=== PATIENT | female | born 1950 | race Caucasian/White ===

== ENCOUNTER → 2019-03-08 | Outpatient (CLI) | payer MEDICARE, OTHER, SELFPAY | PROVIDERS: Family Provider Physician Assistant; Visit Provider Internal Medicine Medical Oncology | DX: M81.0 Age-related osteoporosis without current pathological fracture (principal); C50.111 Malignant neoplasm of central portion of right female breast; Z17.1 Estrogen receptor negative status [ER-] | CPT/HCPCS: 96372; J0897 ==

== ENCOUNTER 2019-09-23 08:14 | Outpatient (CLI) | payer MEDICARE, OTHER, SELFPAY ==
--- NOTE | 2019-09-23 08:24 | MM_ITS ---
WS: [id number] Left breast diagnostic digital mammogram, 09/23/2019 Clinical Data: HX OF BREAST CA (RT MAST) Comparison: 09/21/2018, 07/10/2017, 06/01/2016, 05/26/2015, 04/03/2014, 04/01/2013, 01/25/2012, 05/15/2009. Findings: The left breast shows heterogeneous density. No spiculated masses nor clustered calcifications are se en. The patient has an augmentation mammoplasty implant which is intact. There are no secondary signs of carcinoma. MM/[place] [id number] Impression: 1. Negative left breast mammogram. 2. Intact left breast augmentation mammoplasty implant. BIRADS: 1-Negative FOLLOW UP: 1 Year Follow-up The CAD auto design checker was used.
--- NOTE | 2019-09-23 16:16 | ONC FU_ITS ---
Dr. Esposito Patient Follow-Up Note Patient: SKYLA CAMPOS Unit #: [id number]: 1950 Dicatated By: Stew Esposito M.D.Date of Visit:Sep 23, 2019 Onc Med Follow-up/Prog Note Chief Complaint: Breast cancer/osteoprosis. History of Present Illness: This is a 69 year-old woman with grade 2 invasive ductal carcinoma of the right breast, stage IA (T1a, N0, M0), ER/ID negative and HER-2/errol positive, with subsequent development of Paget's disease. She also has osteoporosis. She had become aware of right nipple changes in 2008. In July of 2009 she had a right breast biopsy, revealing moderately differentiated invasive ductal carcinoma, grade 2, ER/ID negative, HER-2/errol 3+ by IHC, Ki-67 index 29%. On 07/28/2011 she underwent a right breast nipple sparing lumpectomy with sentinel lymph node biopsy. Surgical pathology showed a 5 mm infiltrating ductal carcinoma in the background of multifocal DCIS. There was no involvement in 3 sentinel lymph nodes, but margins were positive. There were no lymphovascular invasion. Her disease was thus, pT1a, N0, M0, stage IA. She did not have re-excision performed. She did not have an adjuvant Herceptin based chemotherapy. She was given radiation to the right breast to 5040 cGy followed by a boost to the surgical bed, completed on 11/20/2009. In February of 2010, she had an abnormal mammogram of the same breast. A biopsy of the lesion on 03/24/2010 showed necrosis with calcifications and epithelial atypia thought to be due to radiation changes. Followup mammogram in October of 2010 did not raise any concerns. She had recurrent nipple changes prompting dermatological evaluation. A needle biopsy revealed Paget's disease. The mammogram on 04/20/2011 in the settings of retracted nipple with the reddened skin showed mild skin thickening without subareolar mass. There were a few calcifications at previous site of biopsy. She underwent a breast MRI, report unavailable. CT of the chest, abdomen, and pelvis and a bone scan on 05/04/2011 showed remote rib fractures and a remote compression fracture of L3 without definite evidence of metastatic disease. On 06/15/2011 she had a right simple mastectomy with TRAM flap reconstruction. Surgical pathology showed 2.3 cm Paget disease of the nipple. There was no associated DCIS or invasive cancer. Post operatively it was complicated with pneumonia, C. difficile colitis, and significant anemia requiring 2 units of blood transfusion. She was first seen by Dr. Stevens on 07/22/2011. An active surveillance was initiated. She underwent reconstructive surgeries with bilateral breast implant placement on 09/06/2011. She was diagnosed with vitamin D insufficiency for which she completed 6 weeks of high-dose vitamin D replacement. Fosamax, Calcium and Vitamin D were started. DEXA scan on 07/24/12 showed T score in left femur -2.7, improved from -3.6 in 2010. Mammogram on 04/01/2013 was BI-RADS 2. Her medical illnesses, in addition to breast cancer, include epilepsy, vitamin D deficiency and osteoporosis. She is a nonsmoker. INTERIM HISTORY: Her DEXA scan on 11/30/2016 showed a T score -1.9 in the lumbar spine, -2.4 in the left femoral neck, and -2.5 in the right femoral neck, consistent with osteoporosis. She began treatment with Prolia in July 2017. A repeat DEXA scan on 06/01/2018 showed T score -1.5 in the lumbar spine, -2.3 in the left femoral neck, and -2.4 in the right femoral neck. As of her follow-up visit in August 2018 she appeared stable clinically with no evidence of recurrence of the breast cancer. She continued treatment with Prolia for the osteoporosis. She is seen for a scheduled visit. She has been feeling good generally. She does report having some fatigue, but she is working full-time. ECOG score is 0. Her appetite is good. Her weight is up a little. She does not have fever, night sweats, or hot flashes. She does tend to have little phlegm in her throat when she gets up in the morning. She does not have sore throat or difficulty swallowing. She does not complain of shortness of breath, cough, or chest pain. She has no GI or complaints. She occasionally has some aching in her knees. She has no other joint or bone pain. She has no focal neurologic symptoms. She is currently completing a course of steroid therapy for poison glenda. Medications: Keppra 3 Tablet (of 500 mg) Oral b.i.d., LaMICtal 1 Tablet (of 100 mg) Oral b.i.d., Magnesium 2 (25 mg) Tablet Oral daily PRN, Multi-Vitamin 1 Tablet Oral daily Allergies: KEFLEX Review of Systems: Constitutional - She has fatigue, but she is working full-time. Her appetite is good. Her weight is up a few pounds. No fever, night sweats, or hot flashes. ECOG score is 0, ENMT - No sinus congestion/drainage. No mouth sores. No sore throat or difficulty swallowing, Hematologic/Lymphatic - She has some bruising. No other bleeding, Respiratory - No shortness of breath. No cough. No pleuritic pain or hemoptysis, Cardiovascular - No angina pain. No palpitations, Gastrointestinal - No nausea or vomiting. No heartburn or acid reflux. No diarrhea or constipation. No blood in the stool or black stools, Genitourinary (F) - No dysuria or hematuria. No urinary frequency. No urgency or incontinence, Musculoskeletal - She sometimes has aching in her knees. She has no other joint or bone pain, Integumentary - She is currrently completely steroid therapy for poison glenda, Neurologic - No headache or dizziness. No numbness or tingling. No other focal neurologic symptoms, Psychiatric - No anxiety or depression. No insomnia. Vital Signs: Performed on Sep 23, 2019 09:03 Height - 67.00 in Weight - 184.8 lbs (HIGH) BSA - 1.96 sq.m BMI - 28.94 Temperature - 97.6 F (LOW) Pulse - 94 /min Respiration - 18 /min BP - 140/94 mm(hg) O2 Sat - 98 % Pain - 0 Physical Examination: Constitutional - She looks good generally, Eyes - Sclerae nonicteric. Conjunctivae clear, ENMT - No lesions noted in the oral cavity, Hematologic/Lymphatic - No cervical, clavicular, or axillary adenopathy, Respiratory - Lungs are clear with good air movement bilaterally, Cardiovascular - Heart rhythm is regular. There is no murmur, gallop, or rub noted, Abdomen - Soft. Liver and spleen are not enlarged. There is no abdominal mass or ascites noted and there is no inguinal adenopathy, Extremities - No edema. Dorsalis pedis pulses are palpable bilaterally, Neurologic - No focal neurologic deficits noted. Impression: 1. Patient with grade 2 invasive ductal carcinoma of the right breast, stage IA (T1a, N0, M0), ER/ID negative and HER-2/errol positive. 2. She underwent right breast lumpectomy with axillary sentinel lymph node biopsy on 07/28/2011. 3. She was given radiation to the right breast 20 dose of 5040 cGy followed by boost to the surgical bed, completed on 11/20/2009. 4. She was then followed on observation/expectant management. She was subsequently confirmed on biopsy of the right breast to have Paget's disease. 5. She underwent right simple mastectomy with TRAM flap reconstruction on 06/15/2011. Pathology showed Paget's disease of the nipple, but no invasive or in situ cancer within the breast. She continued to observation/expectant management. Her other medical illnesses inlcude: 6. Epilepsy. 7. Vitamin D deficiency. 8. Osteoporosis. 9. She is having symptoms of acid reflux. During follow-up she has been doing well clinically. She still had significant osteoporosis by DEXA scan. She had been on treatment with Fosamax since 2010. As of July 2017 her treatment was changed to Prolia, which she has tolerated well. Her repeat DEXA scan in May 2018 showed T score -2.3 in the left femoral neck and -2.4 in the right femoral neck. At this point she continues to have some fatigue, but she still has normal activity. Overall, she appears to be doing well clinically with no evidence of recurrence of the breast cancer. Plan: She remains on observation/expectant management for the breast cancer. She will be given Prolia 60 mg by subcutaneous injection for the osteoporosis. She will continue vitamin D3 1000 units daily. She returns in 6 months. Signed By: Stew Esposito M.D. <<Signature on File>>
== END 2019-09-23 08:15 | disposition home or self-care (01) ==
LOC: RADSHAW 08:21 → ONCMED 10:52
PROVIDERS: PCP Physician Assistant; Visit Provider Internal Medicine Medical Oncology
DX: Z08 Encounter for follow-up examination after completed treatment for malignant neoplasm (principal); Z85.3 Personal history of malignant neoplasm of breast; M81.0 Age-related osteoporosis without current pathological fracture; G40.909 Epilepsy, unspecified, not intractable, without status epilepticus; K21.9 Gastro-esophageal reflux disease without esophagitis; Z92.3 Personal history of irradiation; Z90.11 Acquired absence of right breast and nipple
CPT/HCPCS: 77065; 96372; 99214

== ENCOUNTER 2020-04-30 14:30 | Outpatient (CLI) | payer MEDICARE, OTHER, SELFPAY ==
[2020-04-30] MEDS: denosumab 60 mg SDV SUBCUT (15:05)
== END 2020-04-30 14:31 | disposition home or self-care (01) ==
LOC: ONCMED 14:35
PROVIDERS: PCP Physician Assistant; Visit Provider Internal Medicine Medical Oncology
DX: M81.0 Age-related osteoporosis without current pathological fracture (principal)
CPT/HCPCS: 96372; J0897

== ENCOUNTER 2020-05-19 06:09 | Outpatient (CLI) | payer MEDICARE, OTHER, SELFPAY ==
--- NOTE | 2020-05-19 11:01 | ONC FU_ITS ---
Dr. Esposito Patient Follow-Up Note Patient: Margarita Guevara Unit #: [id number]: 1950 Dicatated By: Stew Esposito M.D.Date of Visit:May 19, 2020 Onc Med Follow-up/Prog Note Chief Complaint: Breast cancer/osteoprosis. 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 She also has osteoporosis. She had become aware of right nipple changes in 2008. In July of 2009 she had a right breast biopsy, revealing moderately differentiated invasive ductal carcinoma, grade 2, ER/DE negative, HER-2/errol 3+ by IHC, Ki-67 index 29%. On 07/27/2009 she underwent a right breast nipple sparing lumpectomy with sentinel lymph node biopsy. Surgical pathology showed a 5 mm infiltrating ductal carcinoma in the background of multifocal DCIS. There was no involvement in 3 sentinel lymph nodes, but margins were positive. There were no lymphovascular invasion. Her disease was thus, pT1a, N0, M0, stage IA. She did not have re-excision performed. She did not have an adjuvant Herceptin based chemotherapy. She was given radiation to the right breast to 5040 cGy followed by a boost to the surgical bed, completed on 11/20/2009. In February of 2010, she had an abnormal mammogram of the same breast. A biopsy of the lesion on 03/24/2010 showed necrosis with calcifications and epithelial atypia thought to be due to radiation changes. Followup mammogram in October of 2010 did not raise any concerns. She had recurrent nipple changes prompting dermatological evaluation. A needle biopsy revealed Paget's disease. The mammogram on 04/20/2011 in the settings of retracted nipple with the reddened skin showed mild skin thickening without subareolar mass. There were a few calcifications at previous site of biopsy. She underwent a breast MRI, report unavailable. CT of the chest, abdomen, and pelvis and a bone scan on 05/04/2011 showed remote rib fractures and a remote compression fracture of L3 without definite evidence of metastatic disease. On 06/15/2011 she had a right simple mastectomy with TRAM flap reconstruction. Surgical pathology showed 2.3 cm Paget disease of the nipple. There was no associated DCIS or invasive cancer. Post operatively it was complicated with pneumonia, C. difficile colitis, and significant anemia requiring 2 units of blood transfusion. She was first seen by Dr. Stevens on 07/22/2011. An active surveillance was initiated. She underwent reconstructive surgeries with bilateral breast implant placement on 09/06/2011. She was diagnosed with vitamin D insufficiency for which she completed 6 weeks of high-dose vitamin D replacement. Fosamax, Calcium and Vitamin D were started. DEXA scan on 07/24/12 showed T score in left femur -2.7, improved from -3.6 in 2010. Mammogram on 04/01/2013 was BI-RADS 2. Her medical illnesses, in addition to breast cancer, include epilepsy, vitamin D deficiency and osteoporosis. She is a nonsmoker. INTERIM HISTORY: Her DEXA scan on 11/30/2016 showed a T score -1.9 in the lumbar spine, -2.4 in the left femoral neck, and -2.5 in the right femoral neck, consistent with osteoporosis. She began treatment with Prolia in July 2017. A repeat DEXA scan on 06/01/2018 showed T score -1.5 in the lumbar spine, -2.3 in the left femoral neck, and -2.4 in the right femoral neck. As of her follow-up visit in September 2019 she appeared stable clinically with no evidence of recurrence of the breast cancer. She continued treatment with Prolia for the osteoporosis. She is seen for a scheduled visit. She has been feeling good generally. She does have some mild fatigue, attributable to her medication. She still has normal activity. ECOG score is 0. Appetite is good. She has no fever, night sweats, or hot flashes. She has no shortness of breath, cough, or chest pain. She has no GI complaints. Bladder function remains adequate, though she says she has developed some prolapse. She has no significant joint or bone pain. She is due to have a repeat DEXA scan this month. She does not complain of headache. She does have some dizziness, also attributable to her medication. She has no focal neurologic symptoms. Medications: Keppra 3 Tablet (of 500 mg) Oral b.i.d., LaMICtal 1 Tablet (of 100 mg) Oral b.i.d., Magnesium 2 (25 mg) Tablet Oral daily PRN, Multi-Vitamin 1 Tablet Oral daily Allergies: KEFLEX Vital Signs: Performed on May 19, 2020 09:19 Height - 67.00 in Weight - 191 lbs (HIGH) BSA - 1.98 sq.m BMI - 29.92 Temperature - 96.1 F (LOW) Pulse - 96 /min Respiration - 18 /min BP - 145/94 mm(hg) (HIGH) O2 Sat - 97 % Pain - 0 Fatigue - 0 Physical Examination: Constitutional - She looks good generally, Eyes - Sclerae nonicteric. Conjunctivae clear, ENMT - No lesions noted in the oral cavity, Hematologic/Lymphatic - No cervical, clavicular, or axillary adenopathy, Respiratory - Lungs are clear with good air movement bilaterally, Cardiovascular - Heart rhythm is regular. There is no murmur, gallop, or rub noted, Abdomen - Soft. Liver and spleen are not enlarged. There is no abdominal mass or ascites noted and there is no inguinal adenopathy, Extremities - No edema, Neurologic - No focal neurologic deficits noted. Lab/Imaging: Her laboratory studies from 05/18/2020 included CBC showing hemoglobin 15.2 g, white blood cell count 4500, and platelet count 189,000. Comprehensive metabolic profile showed normal renal function with BUN 14 and creatinine 0.7 mg/dL. The bilirubin and liver enzymes were normal. The 25-hydroxy vitamin D level was normal at 41 ng/mL. Problem List: 1. Grade 2 invasive ductal carcinoma of the right breast, stage IA (T1a, N0, M0), ER/DE negative and HER-2/errol positive, treated in 2009 with lumpectomy, SALNB, and radiation. 2. She subsequently was confirmed on biopsy of the right breast to have Paget's disease. She underwent right simple mastectomy with TRAM flap reconstruction on 06/15/2011. Pathology showed Paget's disease of the nipple, but no invasive or in situ cancer within the breast. 3. Vitamin D deficiency. 4. Osteoporosis. 5. GERD. 6. Epilepsy. Problems Addressed with this Encounter and Plan: 1. Patient with grade 2 invasive ductal carcinoma of the right breast, stage IA (T1a, N0, M0), ER/DE negative and HER-2/errol positive. She underwent right breast lumpectomy with axillary sentinel lymph node biopsy on 07/27/2009. She was given radiation to the right breast to a total dose of 5040 cGy followed by boost to the surgical bed, completed on 11/20/2009. She was then followed on observation/expectant management. She was subsequently confirmed on biopsy of the right breast to have Paget's disease. She underwent right simple mastectomy with TRAM flap reconstruction on 06/15/2011. Pathology showed Paget's disease of the nipple, but no invasive or in situ cancer within the breast. She then continued on observation/expectant management. During follow-up she has been doing well clinically with no evidence of recurrence of the breast cancer. She is due for her surveillance unilateral left diagnostic mammogram in September, and that will be scheduled. She will be continuing her regular follow-up now with Nilda Ibarra. I will just plan to see her again as needed. 2. Osteoporosis. She has been on treatment with Prolia, which she has tolerated well. She is due to have a repeat DEXA scan this month. At this point I am assuming that she will continue her Prolia injections every 6 months along with her vitamin D supplementation. Signed By: Stew Esposito M.D. <<Signature on File>>
== END 2020-05-19 06:10 | disposition home or self-care (01) ==
LOC: ONCMED 06:12
PROVIDERS: PCP Physician Assistant; Visit Provider Internal Medicine Medical Oncology
DX: Z08 Encounter for follow-up examination after completed treatment for malignant neoplasm (principal); Z85.3 Personal history of malignant neoplasm of breast; M81.0 Age-related osteoporosis without current pathological fracture; Z79.899 Other long term (current) drug therapy; Z90.11 Acquired absence of right breast and nipple; Z92.3 Personal history of irradiation
CPT/HCPCS: G0463

== ENCOUNTER 2020-06-02 14:50 | Outpatient (CLI) | payer MEDICARE, OTHER, SELFPAY ==
--- NOTE | 2020-06-02 15:05 | XR_ITS ---
WS: [id number] DEXA (DUAL ENERGY X-RAY ABSORPTIOMETRY) Bone mineral density was performed using a Evino machine. HISTORY: OSTEOPOROSIS COMPARISON: 06/01/2018 Lumbar spine BMD (L1-L4): 1.001 g/cm2 T score: -1.5 Z score: -0.5 Total hip BMD: Left: 0.742 g/cm2. T score: -2.1 Z score: -1.2 Right: 0.725 g/cm2. T score: -2.2 Z score: -1.4 10 year probability of a major osteoporotic fracture is 23%. Compared to the prior study from 06/01/2018. Lumbar spine bone mineral density has increased by 0.5%. Bilateral hips bone mineral density has increased by 2.9%. XR/XR DEXA axial skeleton* [id number] IMPRESSION: OSTEOPENIA based upon the WHO classification for females. Significant improveme nt in bone mineral density within the hips since the prior study.
== END 2020-06-02 14:51 | disposition home or self-care (01) ==
LOC: RADWPI 14:51
PROVIDERS: PCP Physician Assistant; Visit Provider Physician Assistant
DX: M81.0 Age-related osteoporosis without current pathological fracture (principal); M85.88 Other specified disorders of bone density and structure, other site
CPT/HCPCS: 77080

== ENCOUNTER 2020-10-27 10:05 | Outpatient (CLI) | payer MEDICARE, OTHER, SELFPAY ==
--- NOTE | 2020-10-27 10:09 | MM_ITS ---
WS: [id number] LEFT DIGITAL MAMMOGRAPHY WITH CAD CLINICAL INFORMATION: HX OF BREAST CA;RT MASTECTOMY COMPARISON: September 23, 2019 TECHNIQUE: 6 views of the left breast were obtained. FINDINGS: Left breast implant appears mammographically intact. The left breast is composed of heterogeneous fibroglandular density tissue, which can limit the detec tion of small underlying mass lesions. Asymmetric density measuring 12 mm new compared to previous. T his is best seen on the ML and MLO views along the posterior nipple line adjacent to the breast impla nt. Recommend further evaluation with spot compression views and ultrasound. MM/[place] [id number] IMPRESSION: BI-RADS: 0-Incomplete: Need additional imaging evaluation FOLLOW UP: Need Additional Imaging RECOMMEND LEFT BREAST DIAGNOSTIC MAMMOGRAPHY AND ULTRASOUND FOR FURTHER EVALUAT ION.
== END 2020-10-27 10:06 | disposition home or self-care (01) ==
LOC: RADSHAW 10:08
PROVIDERS: PCP Physician Assistant; Visit Provider Internal Medicine Medical Oncology
DX: Z85.3 Personal history of malignant neoplasm of breast (principal); Z90.11 Acquired absence of right breast and nipple; N64.89 Other specified disorders of breast
CPT/HCPCS: 77065

== ENCOUNTER 2020-10-29 13:16 | Outpatient (RCR) | payer MEDICARE, OTHER, SELFPAY ==
[2020-10-29] MEDS: denosumab 60 mg SDV SUBCUT (13:48)
== END 2020-11-10 23:59 | disposition home or self-care (01) ==
LOC: ONCMED 13:16
PROVIDERS: PCP Physician Assistant; Visit Provider Internal Medicine Medical Oncology
DX: M81.0 Age-related osteoporosis without current pathological fracture (principal); Z79.899 Other long term (current) drug therapy
CPT/HCPCS: 96372; J0897

== ENCOUNTER 2020-11-04 08:05 | Outpatient (CLI) | payer MEDICARE, OTHER, SELFPAY ==
--- NOTE | 2020-11-04 08:13 | US_ITS ---
WS: [id number] LEFT DIGITAL MAMMOGRAPHY WITH CAD CLINICAL INFORMATION: ABNORMAL FINDING LT BREAST COMPARISON: October 27, 2020 TECHNIQUE: 3 views of the left breast were obtained. FINDINGS: Postoperative left breast implant. Scattered fibroglandular densities of the left breast. Previously described 12 mm asymmetric density is again seen today and partially compresses out on the spot compression views. Ultrasound is pending . ULTRASOUND BREAST LEFT TECHNIQUE: Ultrasound left breast focused area of concern. FINDINGS: Ultrasound left breast posterior to the nipple 6 - 9:00 position. Dense underlying parenchymal tissue . A few incidental dilated ducts. No suspicious cystic or solid lesions. No lesions to target for bio psy. US/US breast LT limited* [id number] IMPRESSION: BI-RADS: 2-Benign FOLLOW UP: 1 Year Follow-up Recommend return to annual diagnostic mammography.
== END 2020-11-04 08:06 | disposition home or self-care (01) ==
LOC: RADSHAW 08:10
PROVIDERS: PCP Physician Assistant; Visit Provider Internal Medicine Medical Oncology
DX: N64.89 Other specified disorders of breast (principal)
CPT/HCPCS: 76642; 77065

== ENCOUNTER 2021-03-16 15:20 | Emergency (ER) | payer MEDICARE, OTHER, SELFPAY ==
--- NOTE | 2021-03-16 15:22 | XRR_ITS ---
PROCEDURE INFORMATION: Exam: XR Right Wrist Exam date and time: 03/16/2021 3:22 PM Age: 71 years old Clinical indication: Injury or trauma; Fall; Blunt trauma (contusions or hematomas); Wrist; Right TECHNIQUE: Imaging protocol: XR Right wrist. Views: 3 or more views. COMPARISON: No relevant prior studies available. FINDINGS: Bones/joints: Distal radial metaphyseal minimally displaced fracture. Moderate to severe 1st carpometacarpal joint osteoarthritis. Soft tissues: Normal. XR/XR wrist RT min 3V* [id number] IMPRESSION: 1. Distal radial metaphyseal minimally displaced fracture. 2. Moderate to severe 1st carpometacarpal joint osteoarthritis.
[2021-03-16 15:46] VITALS: BP 154/70; PULSE 41; RESP 16; TEMP 36.6; O2SAT 95
--- NOTE | 2021-03-16 16:02 | W.ED.FALL ---
HPI - Fall General: Chief Complaint: Fall Stated Complaint: Fell on wrist Time Seen by Provider: 03/16/21 16:34 History of Present Illness: HPI Narrative: Patient tripped while walking today falling on her right wrist now has pain to her right wrist. Patient denies any cardiac problems is not on any heart medications does take antiseizure medication. No history of slow heart rate. Denies shortness of breath chest pain or dizziness. MD complaint: fall Onset (ago): minute(s) Fall from: standing Fall witnessed: yes, by family Place fall occurred: home Symptoms prior to fall: none Context: tripped/slipped Associated symptoms-after fall: Denies abdominal pain, chest pain or headache(s) Review of Systems Const: Denies: fever(s), chills or body aches Eyes: Denies: change in vision or blurry vision ENMT: Denies: throat pain or nasal congestion Card: Reports: other (No history of bradycardia); Denies: chest pain or dyspnea on exertion Resp: Denies: dyspnea, productive cough or non-productive cough GI: Denies: abdominal pain, nausea or vomiting Musc: Reports: extremity pain (Right arm hurts after tripping and falling today) Skin/Breast: Denies: rash Neuro: Denies: headache(s) Psych: Denies: anxiety or depression Henry/Lymph: Denies: easy bruising Physical Exam Const: COMMON NORMALS: no acute distress, average body habitus and patient oriented x3 HENMT: COMMON NORMALS: normocephalic HEAD & SCALP: normal to inspection and normocephalic FACE & SINUS: normal facial exam Eye: COMMON NORMALS: conjunctivae normal GENERAL EYE: appearance normal, both eyes and all related structures CONJUNCTIVA: Yes conjunctivae normal Neck/C-Spine: COMMON NORMALS: no JVD Resp: COMMON NORMALS: normal respiratory effort Cardio: COMMON NORMALS: no JVD OTHER: Rate in triage and when checked in waiting room was in the 40s. When retriaged again for splint it was up in the 70s and 80s. GI: COMMON NORMALS: Normal to inspection, nondistended, normoactive bowel sounds present Extremity: COMMON NORMALS: normal to inspection and full ROM Neuro: COMMON NORMALS: patient oriented x3 Course Vital Signs: Vital signs: Vital Signs Temperature 97.9 F 03/16/21 15:46 Pulse Rate 41 L 03/16/21 15:46 Respiratory Rate 16 03/16/21 15:46 Blood Pressure 154/70 03/16/21 15:46 Pulse Oximetry 95 03/16/21 15:46 MDM - Fall MDM Narrative: Medical decision making narrative: Brief history and physical exam was performed as part of the triage process. Due to current ED wait time patient will be placed in waiting room until a room becomes available. Explained to patient he/she will be seen in order of severity. Patient is currently safe to wait in the waiting room until we can get them placed. Patient informed that if condition worsens at any time to please let the front end manager know. Patient was evaluated in the waiting room shown to have a wrist fracture. Patient also was bradycardic on triage. Will work the bradycardia up since she has no history of the. Patient given splint applied for fracture and will be referred to Ortho. 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 Patient's heart rate was in the 70s to 80s when given splint applied. Discharge Plan Discharge Patient Disposition: Home Clinical Impression: Bradycardia Distal radial fracture Qualifiers: Encounter type: initial encounter Fracture type: closed Fracture morphology: other fracture Laterality: right Qualified Code(s): S52.591A - Other fractures of lower end of right radius, initial encounter for closed fracture Condition: Stable Prescriptions: New hydrocodone-acetaminophen 5-325 mg tablet 1 tab PO TID PRN (Reason: pain) Qty: 14 RF: 0 Discharge Orders: Discharge ED (Routine); Ordered 03/16/21 Ordered By: Tj Irving Referrals: Nilda Ibarra PA [Primary Care Provider] - Discharge Diet: Usual diet Discharge Activity: Limit activity as instructed Patient Instructions: Arm Fracture in Adults (ED) Activity Restrictions/Additional Instructions: Follow-up with medical provider as directed. Take medications as prescribed. Return to the ER or your medical provider if condition worsens. Please read and understand discharge instructions. If any questions ask please. Wear splint and sling until follow-up with primary care provider. Make sure you check your pulse rate, at regular intervals always record those and report them to your primary care provider. Hospital contact with appointment for Ortho follow-up provider. Coding Level of Care Code ED Pattern Scratcher for Chg Fwd Exam Comprehensive
--- NOTE | 2021-03-16 16:51 | PC.NURSE ---
Pt refused EKG. Monitor heart rate, maintains at upper 70's
[2021-03-16] MEDS: HYDROcodone-acetaminophen 5-325 mg Tablet 1 TAB PO (16:55)
[2021-03-16 16:59] VITALS: BP 134/82; PULSE 73; RESP 17; O2SAT 96
--- NOTE | 2021-03-17 09:35 | DCPLANNER ---
social media sr strategy manager had message to schedule a follow up appointment for patient with ortho. social media sr strategy manager called the ortho clinic, spoke with Whitney, gave clinic patients information. social media sr strategy manager was told that patients information would be printed and reviewed. Clinic will call patient with appointment information.
--- NOTE | 2021-03-25 09:02 | DCPLANNER ---
Patient had a follow up appointment scheduled for 03.18.21 with Wolfgang NORWOOD, at ortho - patient did attend appointment.
== END 2021-03-16 17:01 | disposition home or self-care (01) ==
PROVIDERS: Emergency Provider Nurse Practitioner Family; PCP Physician Assistant
DX: S52.591A Other fractures of lower end of right radius, initial encounter for closed fracture (principal); R00.1 Bradycardia, unspecified; W01.0XXA Fall on same level from slipping, tripping and stumbling without subsequent striking against object, initial encounter
CPT/HCPCS: 29105; 73110; 99283

== ENCOUNTER → 2021-03-18 08:54 | Outpatient (BNVA) | payer MEDICARE, OTHER, SELFPAY | PROVIDERS: PCP Physician Assistant; Referring Provider Nurse Practitioner Family; Visit Provider Physician Assistant | DX: S52.591A Other fractures of lower end of right radius, initial encounter for closed fracture (principal); X58.XXXA Exposure to other specified factors, initial encounter; Z46.89 Encounter for fitting and adjustment of other specified devices; S52.591D Other fractures of lower end of right radius, subsequent encounter for closed fracture with routine healing; X58.XXXD Exposure to other specified factors, subsequent encounter | CPT/HCPCS: 73110; 97760; L3982 ==

== ENCOUNTER 2021-03-18 13:45 | Outpatient (CLI) | payer MEDICARE, OTHER, SELFPAY | END 2021-03-18 13:46 | disposition home or self-care (01) | LOC: SPT 13:46 | PROVIDERS: PCP Physician Assistant; Visit Provider Physician Assistant | DX: Z46.89 Encounter for fitting and adjustment of other specified devices (principal); S52.591D Other fractures of lower end of right radius, subsequent encounter for closed fracture with routine healing; X58.XXXD Exposure to other specified factors, subsequent encounter | CPT/HCPCS: 97760; L3982 ==

== ENCOUNTER → 2021-04-06 10:29 | Outpatient (BNVA) | payer MEDICARE, OTHER, SELFPAY | PROVIDERS: PCP Physician Assistant; Visit Provider Physician Assistant | DX: S52.591D Other fractures of lower end of right radius, subsequent encounter for closed fracture with routine healing (principal); M18.0 Bilateral primary osteoarthritis of first carpometacarpal joints; X58.XXXD Exposure to other specified factors, subsequent encounter | CPT/HCPCS: 73110 ==

== ENCOUNTER → 2021-04-29 10:29 | Outpatient (BNVA) | payer MEDICARE, OTHER, SELFPAY | PROVIDERS: PCP Physician Assistant; Visit Provider Physician Assistant | DX: S52.501A Unspecified fracture of the lower end of right radius, initial encounter for closed fracture (principal); X58.XXXA Exposure to other specified factors, initial encounter | CPT/HCPCS: 73110 ==

== ENCOUNTER 2021-05-13 12:46 | Outpatient (CLI) | payer MEDICARE, OTHER, SELFPAY ==
[2021-05-13 13:13] VITALS: BP 116/78; PULSE 79; RESP 18; TEMP 37.4; O2SAT 95
[2021-05-13] MEDS: denosumab 60 mg SDV SUBCUT (13:19)
[2021-05-13 13:26] VITALS: BP 122/87; PULSE 79; RESP 18; TEMP 37.1; O2SAT 95
== END 2021-05-13 12:47 | disposition home or self-care (01) ==
LOC: ONCMED 12:53
PROVIDERS: PCP Physician Assistant; Visit Provider Physician Assistant
DX: M81.0 Age-related osteoporosis without current pathological fracture (principal)
CPT/HCPCS: 96372; J0897

== ENCOUNTER 2021-07-21 04:46 | Emergency (ER) | payer MEDICARE, OTHER, SELFPAY ==
[2021-07-21 04:48] VITALS: BMI 27.3
--- NOTE | 2021-07-21 04:52 | CTR_ITS ---
PROCEDURE INFORMATION: Exam: CT Abdomen And Pelvis Without Contrast Exam date and time: 07/21/2021 5:10 AM Age: 71 years old Clinical indication: Abdominal pain; Localized; Left lower quadrant (llq); Prior surgery; Surgery type: Csection. Mastectomy. Breast oct. ; Patient HX: C/O llq pain. History of uterine fibroid tumor. ; Additional info: Llq abd pain TECHNIQUE: Imaging protocol: Computed tomography of the abdomen and pelvis without contrast. Radiation optimization: All CT scans at this facility use at least one of these dose optimization techniques: automated exposure control; mA and/or kV adjustment per patient size (includes targeted exams where dose is matched to clinical indication); or iterative reconstruction. COMPARISON: No relevant prior studies available. RADIATION DOSE METRICS: Total DLP (mGy-cm): 1528.56 FINDINGS: Lungs: Mild probable atelectasis and parenchymal scarring in the lower lungs. Mild bronchiectasis the posterior lower lobes bilaterally. No pleural fluid. Liver: Unremarkable. Gallbladder and bile ducts: No definite gallbladder abnormality by CT. No biliary tree dilation. Pancreas: Unremarkable. Spleen: Unremarkable. Adrenal glands: Unremarkable. Kidneys and ureters: Several left intrarenal calculi, largest measures about 5 mm. Mild left perinephric and periureteric stranding/fluid. Mild left hydronephrosis and hydroureter. However, no definite ureteral calculus is identified. There is a 3-4 mm calculus in the dependent aspect of the urinary bladder. Therefore, I suspect the patient has recently passed a left ureteral calculus. Please correlate clinically. No right hydronephrosis or visible right ureteral calculus. Stomach and bowel: No significant bowel distention. There is mild diverticulosis involving the colon, without CT evidence of diverticulitis. Appendix: The appendix is visualized and appears normal. Intraperitoneal space: No free intraperitoneal air, or ascites. Vasculature: No evidence for abdominal aortic aneurysm. Lymph nodes: No retroperitoneal adenopathy. Urinary bladder: 3-4 mm calculus in the dependent aspect of the urinary bladder. Reproductive: Large 4.5 cm calcified fibroid extending from the fundus of the uterus. Smaller 9-10 mm calcified presumed fibroid the in the lower uterus. Bones/joints: Moderate to severe degenerative/arthritic changes in the lower lumbar spine. Soft tissues: No significant acute finding. CT/CT abdomen pelvis wo con [id number] IMPRESSION: 1. Mild left hydronephrosis/hydroureter, and perinephric/periureteric stranding/fluid. 2. No visible ureteral calculus. 3-4 mm calculus in the urinary bladder. Therefore, I suspect the patient has recently passed a left ureteral calculus. See above. 3. Intrarenal calculi, details above. 4. Mild diverticulosis, without evidence of diverticulitis. 5. Normal appendix. 6. No free air or bowel distention. 7. Calcified uterine fibroids, details above. 8. Other findings discussed above.
--- NOTE | 2021-07-21 04:53 | ED_ITS ---
Documented by User: Hari Zeng MD 07/21/21 18:42 HPI - Abdominal Pain General: Chief Complaint: Abdominal Pain Stated Complaint: ABD Pain Time Seen by Provider: 07/21/21 04:48 Source: patient and EMS Mode of arrival: EMS Limitations: no limitations History of Present Illness: 71-year-old female states that she has been having severe left lower quadrant abdominal pains along with some left-sided flank pains tonight. States it started late tonight worsened this morning she denies any fever or vomiting. She is given fentanyl in route states her pain has improved with IV pain meds states her pain is currently a 3 out of 10. Associated Symptoms: Denies chills, dysuria and fever(s) Review of Systems Const: Denies: fever(s), chills, body aches or change in appetite Eyes: Denies: blurry vision or eye discomfort ENMT: Denies: throat pain or dental pain Card: Denies: chest pain Resp: Denies: dyspnea GI: Reports: abdominal pain : Denies: dysuria Musc: Denies: neck pain or back pain Skin/Breast: Denies: rash Neuro: Denies: headache(s) Psych: Denies: depression Henry/Lymph: Denies: easy bruising All/Imm: Denies: urticaria PFSH ED PFSH: Surgical History (Updated 07/21/21 @ 04:54 by Hari Zeng MD) H/O mastectomy Social History Smoking and tobacco status: never smoked Physical Exam Const: COMMON NORMALS: no acute distress, patient oriented x3 and healthy appearing HENMT: COMMON NORMALS: normocephalic and atraumatic HEAD & SCALP: normocephalic and atraumatic Eye: COMMON NORMALS: Equal, round and reactive pupils present and EOMs intact bilaterally PUPIL: Yes Equal, round and reactive pupils present Neck/C-Spine: COMMON NORMALS: full ROM and supple Chest: COMMONS NORMALS: normal inspection of the chest and normal palpation of entire chest wall Resp: COMMON NORMALS: normal respiratory effort, No retractions, No use of accessory muscles and clear to auscultation bilaterally AUSCULTATION: clear to auscultation bilaterally Cardio: COMMON NORMALS: regular rate, regular rhythm and No murmurs present (Cardio) RATE: regular rate RHYTHM: regular rhythm GI: COMMON NORMALS: Normal to inspection, nondistended, normoactive bowel sounds present, Soft to palpation and no masses PALPATION: Yes Soft to palpation and Yes Tenderness to palpation present (GI) Details: LLQ Extremity: COMMON NORMALS: normal to inspection and full ROM Neuro: COMMON NORMALS: patient oriented x3, moves all extremities and no focal motor deficits Psych: COMMON NORMALS: mental status grossly normal, Normal thought process present and cooperative THOUGHT PROCESS: Normal thought process present Skin: COMMON NORMALS: no rashes or lesions noted and no wounds GENERAL SKIN EXAM: no rashes or lesions noted Course Vital Signs: Vital signs: Vital Signs Pulse Rate 66 07/21/21 08:00 Respiratory Rate 18 07/21/21 08:00 Blood Pressure 134/62 07/21/21 08:30 Pulse Oximetry 94 07/21/21 08:30 MDM - Abdominal Pain Medical Decision Making Patient presents here with abdominal pain she is pending blood work and her CT abdomen care turned over to Dr. Craven at shift change Lab Data : 07/21/21 05:56 07/21/21 05:56 Labs/Radiology: Radiology Impressions Abdomen/Pelvis CT 07/21/21 04:52 IMPRESSION: 1. Mild left hydronephrosis/hydroureter, and perinephric/periureteric stranding/fluid. 2. No visible ureteral calculus. 3-4 mm calculus in the urinary bladder. Therefore, I suspect the patient has recently passed a left ureteral calculus. See above. 3. Intrarenal calculi, details above. 4. Mild diverticulosis, without evidence of diverticulitis. 5. Normal appendix. 6. No free air or bowel distention. 7. Calcified uterine fibroids, details above. 8. Other findings discussed above. Laboratory Results WBC 6.1 10^3/uL (4.0-10.0) 07/21/21 05:56 RBC 5.12 10^6/uL (4.1-5.3) 07/21/21 05:56 Hgb 14.7 g/dL (11.5-15.3) 07/21/21 05:56 Hct 46.1 % (37.0-47.0) 07/21/21 05:56 MCV 90.0 fl (81-99) 07/21/21 05:56 MCH 28.7 pg (28.0-34.0) 07/21/21 05:56 MCHC 31.9 g/dL (30.0-36.0) 07/21/21 05:56 RDW 12.5 % (12.1-15.1) 07/21/21 05:56 Plt Count 201 10^3/cmm (130-400) 07/21/21 05:56 MPV 10.2 fL (7.4-10.4) 07/21/21 05:56 Neut % (Auto) 78.3 % 07/21/21 05:56 Lymph % (Auto) 12.7 % 07/21/21 05:56 Gila % (Auto) 6.1 % 07/21/21 05:56 Eos % (Auto) 2.5 % 07/21/21 05:56 Baso % (Auto) 0.2 % 07/21/21 05:56 Neut # (Auto) 4.77 10^3/uL (1.8-7.7) 07/21/21 05:56 Lymph # (Auto) 0.8 10^3/uL (0.8-4.8) 07/21/21 05:56 Gila # (Auto) 0.4 10^3/uL (0.2-0.9) 07/21/21 05:56 Eos # (Auto) 0.2 10^3/uL (0.0-0.8) 07/21/21 05:56 Baso # (Auto) 0.0 10^3/uL (0.0-0.1) 07/21/21 05:56 Nucleated RBC % (auto) 0 % 07/21/21 05:56 Nucleated RBCs # 0.0 /100WBC 07/21/21 05:56 Sodium 138 mmol/L (136-145) 07/21/21 05:56 Potassium 3.8 mmol/L (3.5-5.1) 07/21/21 05:56 Chloride 102 mmol/L (98-107) 07/21/21 05:56 Carbon Dioxide 25 mmol/L (22-29) 07/21/21 05:56 Anion Gap 14.8 (5-19) 07/21/21 05:56 BUN 12 mg/dL (8-23) 07/21/21 05:56 Creatinine 0.7 mg/dL (0.5-0.9) 07/21/21 05:56 GFR Calculation 83.0 mL/min (90-130) L 07/21/21 05:56 Glucose 121 mg/dL (65-115) H 07/21/21 05:56 Calculated Osmolality 287 mOsm/kg (285-295) 07/21/21 05:56 Calcium 9.5 mg/dL (8.5-10.5) 07/21/21 05:56 Total Bilirubin 0.4 mg/dL (0.15-1.2) 07/21/21 05:56 AST 21 U/L (0-32) 07/21/21 05:56 ALT 17 U/L (0-33) 07/21/21 05:56 Alkaline Phosphatase 35 IU/L (35-105) 07/21/21 05:56 Total Protein 7.0 g/dL (6.6-8.7) 07/21/21 05:56 Albumin 4.5 g/dL (3.5-5.2) 07/21/21 05:56 Globulin 2.5 g/dL (1.3-4.6) 07/21/21 05:56 Lipase 26 U/L (13-60) 07/21/21 05:56 Urine Color Yellow (Yellow) 07/21/21 07:20 Urine Appearance Clear (CLEAR) 07/21/21 07:20 Urine pH 6 (5-7) 07/21/21 07:20 Ur Specific [place] 1.015 (1.005-1.030) 07/21/21 07:20 Urine Protein Neg (Negative) 07/21/21 07:20 Urine Glucose (UA) Norm (Normal) 07/21/21 07:20 Urine Ketones Negative (Negative) 07/21/21 07:20 Urine Blood 3+ (Negative) H 07/21/21 07:20 Urine Nitrate Negative (Negative) 07/21/21 07:20 Urine Bilirubin Neg (Negative) 07/21/21 07:20 Urine Urobilinogen Norm mg/dL (Negative) 07/21/21 07:20 Ur Leukocyte Esterase 2+ (Negative) H 07/21/21 07:20 Urine RBC 25-40 /hpf (0-2) H 07/21/21 07:20 Urine WBC 10-15 /hpf (0-5) H 07/21/21 07:20 Ur Squamous Epith Cells 0-4 /hpf (0-5) H 07/21/21 07:20 Amorphous Sediment Not Reportable 07/21/21 07:20 Urine Bacteria Trace /hpf (NONE) 07/21/21 07:20 Discharge Plan Discharge Patient Disposition: Home Clinical Impression: Nephrolithiasis, Cystitis Condition: Stable Prescriptions: New Macrobid 100 mg capsule 100 mg PO BID 7 Days Qty: 14 0RF Rx Instructions: must administer with a meal/food No Action hydrocodone-acetaminophen 5-325 mg tablet 1 tab PO .Q6hr PRN (Reason: pain) 5 Days Qty: 20 0RF (DME) Cock up splint See Rx Instructions .Route .MEDSUPPLY Qty: 1 0RF Rx Instructions: As directed levetiracetam [Keppra] 250 mg tablet 100 mg PO TID 0RF lamotrigine [Lamictal] 150 mg tablet 75 mg PO BID 0RF (DME) FAST FORM COCK UP SPLINT See Rx Instructions .Route .MEDSUPPLY Qty: 1 0RF Rx Instructions: As directed oxycodone 5 mg tablet 5 mg PO Q6H PRN (Reason: pain) 7 Days Qty: 30 0RF Rx Instructions: Take 1 tablet PO Q6 hrs as needed for pain Discharge Orders: Discharge ED (Routine); Ordered 07/21/21 Ordered By: Gaurang Craven Referrals: Nilda Ibarra PA [Primary Care Provider] - Discharge Diet: Usual diet Discharge Activity: Increase activity as tolerated Patient Instructions: Opioid Safety Activity Restrictions/Additional Instructions: Case management make arrangements for follow-up with urology. Sign Out Sign Out Data: Patient Sign Out occurred on 07/21/21 at 06:10. Patient's care was discussed, and care was transferred from to Gaurang Craven DO. Coding Level of Care Code ED Medical Chief Technician for Chg Fwd Exam Comprehensive Documented by User: Gaurang Craven DO 07/27/21 14:49 HPI - Abdominal Pain General: Chief Complaint: Abdominal Pain Stated Complaint: ABD Pain Time Seen by Provider: 07/21/21 04:48 PFS ED PFSH: Surgical History (Updated 07/21/21 @ 04:54 by Hari Zeng MD) H/O mastectomy Social History Smoking and tobacco status: never smoked Course Vital Signs: Vital signs: Vital Signs Pulse Rate 66 07/21/21 08:00 Respiratory Rate 18 07/21/21 08:00 Blood Pressure 134/62 07/21/21 08:30 Pulse Oximetry 94 07/21/21 08:30 MDM - Abdominal Pain Medical Decision Making Patient presents here with abdominal pain she is pending blood work and her CT abdomen care turned over to Dr. Craven at shift change Care assumed at change of shift. Patient has nephrolithiasis. Discussed results with the patient discharged home strain urine Flomax pain medications follow-up with [facility] I reviewed the patient's medical records. Lab Data I reviewed the patient's lab results. : 07/21/21 05:56 07/21/21 05:56 Labs/Radiology: Radiology Impressions Abdomen/Pelvis CT 07/21/21 04:52
[2021-07-21 05:01] VITALS: BP 114/64; PULSE 61; RESP 18; O2SAT 92
[2021-07-21 05:45] VITALS: RESP 18; O2SAT 93
[2021-07-21] MEDS: morphine 4 mg/mL SDV 1 mL IVP (05:45)
[2021-07-21 06:02] LABS: Basophils % 0.2 %; Eosinophils # 0.2 10^3/uL (0.0-0.8); Eosinophils % 2.5 %; Hematocrit 46.1 % (37.0-47.0); Hemoglobin 14.7 g/dL (11.5-15.3); Lymphocytes # 0.8 10^3/uL (0.8-4.8); Lymphocytes % 12.7 %; Mean Corpuscular HGB Conc 31.9 g/dL (30.0-36.0); Mean Corpuscular Hemoglobin 28.7 pg (28.0-34.0); Mean Platelet Volume 10.2 fL (7.4-10.4); Monocytes # 0.4 10^3/uL (0.2-0.9); Monocytes % 6.1 %; Neutrophils # 4.77 10^3/uL (1.8-7.7); Neutrophils % 78.3 %; Nucleated Red Blood Cells % 0 %; Platelet Count 201 10^3/cmm (130-400); Red Blood Count 5.12 10^6/uL (4.1-5.3); Red Cell Distribution Width 12.5 % (12.1-15.1); White Blood Count 6.1 10^3/uL (4.0-10.0)
[2021-07-21] MEDS: sodium chloride 0.9% 1,000 ML 999 ML IV ×2 (06:12→08:18)
[2021-07-21 06:29] LABS: Alanine Aminotransferase 17 U/L (0-33); Albumin Level 4.5 g/dL (3.5-5.2); Alkaline Phosphatase 35 IU/L (35-105); Anion Gap 14.8 (5-19); Aspartate Amino Transferase 21 U/L (0-32); Blood Urea Nitrogen 12 mg/dL (8-23); Calcium 9.5 mg/dL (8.5-10.5); Carbon Dioxide 25 mmol/L (22-29); Chloride 102 mmol/L (98-107); Globulin 2.5 g/dL (1.3-4.6); Glucose 121 mg/dL (65-115); Lipase 26 U/L (13-60); Osmolality Calculated 287 mOsm/kg (285-295); Potassium 3.8 mmol/L (3.5-5.1); Sodium 138 mmol/L (136-145); Total Bilirubin 0.4 mg/dL (0.15-1.2)
[2021-07-21 08:00] VITALS: BP 132/60; PULSE 66; RESP 18; O2SAT 98
[2021-07-21 08:06] LABS: Add Urine Microscopic? YES; Bilirubin Urine Neg (Negative); Blood Urine 3+ (Negative); Glucose Urine UA Norm (Normal); Ketones Urine Negative (Negative); Leukocyte Esterase Urine 2+ (Negative); Nitrate Urine Negative (Negative); Protein Urine Neg (Negative); Specific Gravity, Urine 1.015 (1.005-1.030); Urine Appearance Clear (CLEAR); Urine Color Yellow (Yellow); Urobilinogen Urine Norm (Negative); pH Urine 6 (5-7)
[2021-07-21 08:20] LABS: Add Urine Culture? Yes; Bacteria Urine TRACE /hpf; RBC Urine 25-40 /hpf (0-2); Squamous Epithelial Cell Urine 0-4 /hpf (0-5)
[2021-07-21 08:30] VITALS: BP 134/62; O2SAT 94
--- NOTE | 2021-07-22 09:45 | DCPLANNER ---
Addendum entered by Meka Garcia 08/06/21 18:19: Patient had a follow up appointment scheduled for 07.29.21 with urology - patient did attend appointment. Addendum entered by Meka Garcia 07/29/21 15:20: Patient has a follow up appointment scheduled for July at 4:00 with [facility]. Clinic will call patient with appointment information. Original Note: tooling manager had message to schedule a follow up appointment for patient with urology. tooling manager sent patients information to the front office staff at urology. Patients information will be printed and reviewed. Clinic will call patient with appointment information.
== END 2021-07-21 08:49 | disposition home or self-care (01) ==
PROVIDERS: Emergency Medicine; Emergency Provider Family Medicine; PCP Physician Assistant
DX: N21.0 Calculus in bladder (principal); N30.90 Cystitis, unspecified without hematuria
CPT/HCPCS: 74176; 80053; 81001; 83690; 85025; 87086; 96361; 96374; 99284; J2270; J7030

== ENCOUNTER 2021-07-29 14:50 | Outpatient (CLI) | payer MEDICARE, OTHER, SELFPAY ==
--- NOTE | 2021-07-29 15:57 | XR_ITS ---
WS: [id number] KUB, AP view, 07/29/2021 Clinical Data: NEPHROLITHIASIS Comparison: CT abdomen and pelvis, 07/21/2021. Findings: No abnormal intraabdominal masses or calcifications are seen. There is no dilatated small bowel or ev idence of obstruction. There is fecal material and gas obscuring detail over both kidneys. There are surgical clips on the l eft side of the abdomen. There is a calcified leiomyoma in the region of the uterus. XR/XR KUB [id number] Impression: No definite intrarenal calculi are seen.
== END 2021-07-29 14:51 | disposition home or self-care (01) ==
LOC: RAD 14:55
PROVIDERS: PCP Physician Assistant; Visit Provider Urology
DX: N20.0 Calculus of kidney (principal)
CPT/HCPCS: 74018; 99203

== ENCOUNTER → 2021-10-14 13:00 | Outpatient (BNVA) | payer MEDICARE, OTHER, SELFPAY | PROVIDERS: PCP Physician Assistant; Visit Provider Podiatrist Foot & Ankle Surgery | DX: M79.671 Pain in right foot (principal); M72.2 Plantar fascial fibromatosis; L60.3 Nail dystrophy | CPT/HCPCS: 73630; 99204 ==

== ENCOUNTER 2021-11-05 12:14 | Outpatient (CLI) | payer MEDICARE, OTHER, SELFPAY ==
--- NOTE | 2021-11-05 12:53 | MM_ITS ---
WS: [id number] LEFT 3D TOMOSYNTHESIS DIGITAL MAMMOGRAPHY WITH CAD CLINICAL INFORMATION: HX OF BREAST CA;RT MAST COMPARISON: October 27, 2020 TECHNIQUE: 3 views of the left breast were obtained. FINDINGS: LEFT breast implant is intact. The left breast is composed of heterogeneous fibroglandular density tissue, which can limit the detec tion of small underlying mass lesions. No suspicious focal mass, asymmetry, calcifications, or architectural distortion. No evidence of karley gnancy. MM/[place] [id number] IMPRESSION: BI-RADS: 2-Benign FOLLOW UP: 1 Year Follow-up Recommend return to annual diagnostic mammography.
== END 2021-11-05 12:15 | disposition home or self-care (01) ==
LOC: RAD 12:14
PROVIDERS: PCP Physician Assistant; Visit Provider Physician Assistant
DX: Z85.3 Personal history of malignant neoplasm of breast (principal)
CPT/HCPCS: 77061

== ENCOUNTER → 2021-11-18 11:02 | Outpatient (BNVA) | payer MEDICARE, OTHER, SELFPAY | PROVIDERS: PCP Physician Assistant; Visit Provider Podiatrist Foot & Ankle Surgery | DX: M72.2 Plantar fascial fibromatosis (principal); B35.1 Tinea unguium | CPT/HCPCS: 99214 ==

== ENCOUNTER 2021-11-23 12:06 | Outpatient (CLI) | payer MEDICARE, OTHER, SELFPAY ==
[2021-11-23 12:16] VITALS: BP 143/80; PULSE 79; RESP 18; TEMP 37.1; O2SAT 95
[2021-11-23] MEDS: denosumab 60 mg SDV SUBCUT (12:25)
[2021-11-23 12:34] VITALS: BP 155/89; PULSE 74; RESP 18; TEMP 37.1; O2SAT 96
== END 2021-11-23 12:07 | disposition home or self-care (01) ==
PROVIDERS: PCP Physician Assistant; Visit Provider Physician Assistant
DX: M81.0 Age-related osteoporosis without current pathological fracture (principal)
CPT/HCPCS: 96372; J0897

== ENCOUNTER 2021-12-28 11:31 | Outpatient (CLI) | payer MEDICARE, OTHER, SELFPAY | END 2021-12-28 11:32 | disposition home or self-care (01) | LOC: SPT 11:32 | PROVIDERS: PCP Physician Assistant; Visit Provider Podiatrist Foot & Ankle Surgery | DX: Z46.89 Encounter for fitting and adjustment of other specified devices (principal); M72.2 Plantar fascial fibromatosis | CPT/HCPCS: 97760; L3030 ==

== ENCOUNTER 2022-01-25 15:12 | Outpatient (CLI) | payer MEDICARE, OTHER, SELFPAY ==
--- NOTE | 2022-01-25 15:23 | XR_ITS ---
WS: [id number] Exam: XR KUB [id number] Date/Time of Exam: 01/25/2022 3:23 PM Reason For Exam: Calculus of Kidney Comparison 07/19/2021. Small calcification superimposes the left kidney and apparently represents the a known renal stone. N o bowel obstruction or free air. Large calcification in the central pelvis has the appearance of a ca lcified uterine fibroid. No sign of organ enlargement. Mild levoscoliosis of the lumbar spine. Shantelle us surgical clips in the left abdomen and left pelvis. XR/XR KUB [id number] IMPRESSION: 1. 6 mm calcification superimposing left kidney apparently representing a known renal stone. 2. No acute abdominal finding.
== END 2022-01-25 15:13 | disposition home or self-care (01) ==
LOC: RAD 15:14
PROVIDERS: PCP Physician Assistant; Visit Provider Urology
DX: N20.2 Calculus of kidney with calculus of ureter (principal)
CPT/HCPCS: 74018; 99213

== ENCOUNTER 2022-05-27 09:05 | Oncology outpatient (recurring) (ONCR) | payer MEDICARE, OTHER, SELFPAY ==
[2022-05-27] MEDS: denosumab 60 mg SDV SUBCUT (09:23)
== END 2022-06-10 23:59 | disposition home or self-care (01) ==
LOC: ONCMED 09:07
PROVIDERS: PCP Physician Assistant; Visit Provider Physician Assistant
DX: M81.0 Age-related osteoporosis without current pathological fracture (principal); Z79.899 Other long term (current) drug therapy
CPT/HCPCS: 96372; J0897

== ENCOUNTER 2022-07-16 15:12 | Emergency (ER) | payer MEDICARE, OTHER, SELFPAY ==
--- NOTE | 2022-07-16 15:14 | XRR_ITS ---
PROCEDURE INFORMATION: Exam: XR Right Ankle Exam date and time: 07/16/2022 3:16 PM Age: 72 years old Clinical indication: Injury or trauma; Fall; Blunt trauma; Ankle; Right; Additional info: Ankle pain TECHNIQUE: Imaging protocol: Radiologic exam of the right ankle. Views: 3 or more views. COMPARISON: No relevant prior studies available. FINDINGS: Bones/joints: There is an oblique fracture through the distal fibula with posterior displacement of the distal fracture fragment. There is a fracture through the posterior malleolus with depression of the articular surface measuring 1.5 mm. There is a horizontal fracture through the medial malleolus. There is marked subluxation of the talus posterior and lateral with respect to the articular surface of the tibia. Underlying bony remodeling of the medial malleolus and fibula compatible with old ankle injury is noted. No osteochondral defect of the talus. Soft tissues: No foreign body. XR/XR ankle RT min 3V* [id number] IMPRESSION: Trimalleolar ankle fracture. There is marked subluxation of the talus posterior and lateral with respect to the articular surface of the tibia.
[2022-07-16 15:15] VITALS: BP 123/56; PULSE 73; RESP 16; TEMP 36.7; O2SAT 85
[2022-07-16 15:19] VITALS: BP 144/57; PULSE 75; RESP 15; TEMP 37; O2SAT 100
--- NOTE | 2022-07-16 15:44 | W.ED.EXTPRO ---
HPI - Extremity Problem General: Chief complaint: Extremity Injury, Lower Stated complaint: RIGHT ANKLE PAIN S/P FALL Time Seen by Provider: 07/16/22 15:13 Source: patient Mode of arrival: ambulatory History of Present Illness: 72-year-old female presents to the emergency room with complaints of right ankle pain she twisted and fell has an obvious deformity is brought in by EMS with a posterior splint in place. She had been stepping off a curb. No other injuries denies any loss of consciousness. MD Complaint: extremity pain Onset (ago): hour(s) Pain Consistency: constant Location: left Radiation: none Relieving factors: nothing Exacerbating factors: nothing Associated symptoms: Deny arthralgias, chest pain, fever(s), myalgias, rash or short of breath Review of Systems Const: Denies: fever(s), chills, fatigue or malaise ENMT: Denies: throat pain, ear or mastoid pain, nasal discharge or nasal congestion Card: Denies: chest pain Resp: Denies: dyspnea, productive cough or non-productive cough GI: Denies: abdominal pain, nausea, vomiting, hematemesis, coffee ground emesis, diarrhea, constipation, bloating, hematochezia or melena : Denies: flank pain, difficulty voiding, dysuria, urinary frequency or urinary urgency Skin/Breast: Denies: rash PFSH ED PFSH: Medical History Breast cancer Seizures Urolithiasis Surgical History H/O mastectomy History of bunionectomy Hx of breast reconstruction Hx of section Family History Father , AT 54 Cancer LUNG Mother , AT AGE 50 Motor vehicle accident Social History Smoking and tobacco status: never smoked Alcohol intake: never Substance/Drug Use: never Marital status: Current occupational status: employed Current occupation: prn Physical Exam Const: GENERAL APPEARANCE: cooperative and comfortable ORIENTATION/CONSCIOUSNESS: Yes awake, Yes oriented to person, Yes oriented to place and Yes oriented to time HENMT: COMMON NORMALS: normocephalic, atraumatic and hearing grossly normal bilaterally HEAD & SCALP: normocephalic and atraumatic Resp: COMMON NORMALS: normal respiratory effort, No retractions, No use of accessory muscles and clear to auscultation bilaterally AUSCULTATION: clear to auscultation bilaterally Cardio: COMMON NORMALS: regular rate, regular rhythm and No murmurs present (Cardio) RATE: regular rate RHYTHM: regular rhythm Extremity: COMMON NORMALS: normal to inspection, capillary refill normal, no clubbing, cyanosis or edema, no calf tenderness and no pedal edema Neuro: SENSORIUM/ORIENTATION: Yes oriented to person, Yes oriented to place and Yes oriented to time Skin: COMMON NORMALS: no rashes or lesions noted GENERAL SKIN EXAM: no rashes or lesions noted Procedures Orthopedic Fracture Reduction Fracture #1: Time Out Performed: Yes Side: right Fracture Reduction Location: other (Right ankle) Analgesia: procedural sedation Technique: direct manipulation Post Reduction X-rays Demonstrate: anatomical reduction Post-reduction neuro exam: intact Post-reduction vascular exam: intact Splint Applied: Yes Patient Tolerated Procedure: well Orthopedic Splinting/Casting Injury #1: Side: right Lower Extremity Injury Location: ankle Lower Extremity Immobilizer: posterior splint Other Orthopedic Equipment: crutches Additional Comments: Splint applied and examined immediately after reduction. Procedural Sedation Indication: fracture/dislocation reduction ASA Class: I Preparation: crew director applied, pulse oximeter, capnometry used, supplemental O2 applied, suction/airway equipment at bedside and IV secured IV Etomidate dose (mg): 5 Patient Tolerated Procedure: well and no complications Complications: none Additional Comments: Satisfactory reduction of ankle fracture splinted after reduction Course Vital Signs: Vital signs: Vital Signs Temperature 98.6 F 07/16/22 15:19 Pulse Rate 82 07/16/22 19:00 Respiratory Rate 16 07/16/22 19:00 Blood Pressure 144/97 07/16/22 19:00 Pulse Oximetry 98 07/16/22 19:00 Oxygen Delivery Me thod Room Air 07/16/22 19:00 MDM - Extremity (Nontraumatic) Medical Decision Making Right trimalleolar fracture. . Procedural sedation with etomidate good anatomical reduction placed in a splint with the assistance of the nurse. Patient tolerated well recovered from etomidate discharged home with pain medications and referral to Ortho. Nonweightbearing and until released by orthopedics. Medical Records I reviewed the patient's medical records. Lab Data I reviewed the patient's lab results. Radiology Impressions Ankle X-Ray 07/16/22 17:13 IMPRESSION: There is satisfactory reduction of the ankle fracture dislocation. Discharge Plan Discharge Patient Disposition: Home Clinical Impression: Closed right trimalleolar fracture Condition: Stable Prescriptions: New hydrocodone-acetaminophen 5-325 mg tablet 1 tab PO Q6H PRN (Reason: pain) Qty: 20 0RF No Action levetiracetam [Keppra] 250 mg tablet 100 mg PO TID lamotrigine [Lamictal] 150 mg tablet 75 mg PO BID multivitamin Tablet 1 tab PO DAILY cholecalciferol (vitamin D3) 25 mcg (1,000 unit) capsule 25 mcg PO DAILY Prolia 60 mg/mL syringe SUBCUT (DME) SOLE SUPPORTS See Rx Instructions .Route .MEDSUPPLY Qty: 1 0RF Rx Instructions: As directed terbinafine HCl 250 mg tablet 250 mg PO DAILY 30 Days Qty: 30 2RF Discharge Orders: Discharge ED (Routine); Ordered 07/16/22 Ordered By: Gaurang Craven Referrals: Nilda Ibarra PA [Primary Care Provider] - Discharge Diet: Usual diet Discharge Activity: Limit activity as instructed Patient Instructions: Opioid Safety, Pain Management Activity Restrictions/Additional Instructions: You are seen today for a trimalleolar ankle fracture. Recommend nonweightbearing leaving the splint until seen by orthopedics. They will provide definitive care. Coding Level of Care Code ED Business Continuity Director for Nikki Julian
--- NOTE | 2022-07-16 16:26 | XRR_ITS ---
PROCEDURE INFORMATION: Exam: XR Right Ankle Exam date and time: 07/16/2022 4:31 PM Age: 72 years old Clinical indication: Injury or trauma; Fall; Other: Post reduction TECHNIQUE: Imaging protocol: Radiologic exam of the right ankle. Views: 1 or 2 views. COMPARISON: CR (LOW EXM, ) 07/16/2022 3:16 PM FINDINGS: Bones/joints: There is unchanged subluxation/dislocation of the ankle joint status post reduction. Trimalleolar fracture deformity is unchanged. Soft tissues: There is abundant soft tissue edema. No foreign body. XR/XR ankle RT 2V [id number] IMPRESSION: There is unchanged subluxation/dislocation of the ankle joint status post reduction. Trimalleolar ankle fracture.
[2022-07-16] MEDS: etomidate 2 mg/mL INJ SDV 10 mL 10 MG IVP (17:00)
--- NOTE | 2022-07-16 17:13 | XRR_ITS ---
PROCEDURE INFORMATION: Exam: XR Right Ankle Exam date and time: 07/16/2022 5:09 PM Age: 72 years old Clinical indication: Injury or trauma; Fall; Fracture, traumatic; Closed fracture; Ankle; Right; Bimalleolar; Additional info: Post reduction TECHNIQUE: Imaging protocol: Radiologic exam of the right ankle. Views: 1 or 2 views. COMPARISON: CR (LOW EXM, ) 07/16/2022 4:31 PM FINDINGS: Bones/joints: There is satisfactory reduction of the ankle dislocation. Fracture of the fibula and medial malleolus are visualized on this lateral view. The posterior malleolar fractures better visualized on the prior studies. Soft tissues: There is abundant soft tissue edema. XR/XR ankle RT 1V [id number] IMPRESSION: There is satisfactory reduction of the ankle fracture dislocation.
[2022-07-16 19:00] VITALS: BP 144/97; PULSE 82; RESP 16; O2SAT 98
[2022-07-16] MEDS: HYDROcodone-acetaminophen 5-325 mg Tablet 1 TAB PO (19:04)
--- NOTE | 2022-07-18 08:15 | DCPLANNER ---
Addendum entered by Meka Garcia 07/19/22 11:14: Patient had a follow up appointment scheduled with ortho - patient did attend appointment. Original Note: manager therapy had message to schedule a follow up appointment for patient with ortho. manager therapy sent patients information to the front office staff at ortho. Patients information will be printed and reviewed. Clinic will call patient with appointment information.
== END 2022-07-16 19:53 | disposition home or self-care (01) ==
PROVIDERS: Emergency Provider Family Medicine; PCP Physician Assistant
DX: S82.851A Displaced trimalleolar fracture of right lower leg, initial encounter for closed fracture (principal); Z85.3 Personal history of malignant neoplasm of breast; X50.1XXA Overexertion from prolonged static or awkward postures, initial encounter
CPT/HCPCS: 27818; 29505; 73600; 73610; 96374; 99152; 99284; E0114; J3490

== ENCOUNTER → 2022-07-18 15:40 | Outpatient (BNVA) | payer MEDICARE, OTHER, SELFPAY | PROVIDERS: PCP Physician Assistant; Visit Provider Podiatrist Foot & Ankle Surgery | DX: X50.9XXA Other and unspecified overexertion or strenuous movements or postures, initial encounter (principal); S82.851A Displaced trimalleolar fracture of right lower leg, initial encounter for closed fracture | CPT/HCPCS: 29515; 99204 ==